=== PATIENT | male | born 1955 | race Caucasian/White ===

== ENCOUNTER 2018-03-10 12:49 | Inpatient (IN) | payer MEDICARE, OTHER ==
[2018-03-10] MEDS: SODIUM CHLORIDE 0.9% 1L BAG IV* (13:17)
[2018-03-10] MEDS ORDERED: LORAZEPAM 2 MG INJ (13:22)
[2018-03-10 13:27] LABS: ADD MAN DIFF? NO
[2018-03-10 13:28] LABS: BASOPHIL # 0.1 10^3/ul (0.0-0.1); BASOPHILS % 1.2 % (0.0-2.0); EOSINOPHILS # 0.1 10^3/ul (0.0-0.5); EOSINOPHILS % 1.5 % (0.0-7.0); HEMATOCRIT 38.3 % (42.0-52.0); HEMOGLOBIN 12.9 g/dl (14.0-18.0); LYMPHOCYTES # 1.7 10^3/ul (0.8-2.9); MEAN CORPUSCULAR HEMOGLOBIN 34.3 pg (29.0-33.0); MEAN CORPUSCULAR HGB CONC 33.7 g/dl (32.0-37.0); MEAN CORPUSCULAR VOLUME 101.9 fl (82.0-101.0); MEAN PLATELET VOLUME 9.7 fl (7.4-10.4); MONOCYTE # 0.5 10^3/ul (0.3-0.9); MONOCYTES % 8.6 % (0.0-11.0); NEUTROPHIL # 3.5 10^3/ul (1.6-7.5); NEUTROPHILS % 59.5 % (39.0-77.0); PLATELET COUNT 166 10^3/UL (140-415); RED BLOOD COUNT 3.76 10^6/ul (4.70-6.10); RED CELL DISTRIBUTION WIDTH 13.8 % (11.5-14.5)
[2018-03-10 13:28] LABS: WHITE BLOOD COUNT 5.9 10^3/ul (4.8-10.8)
[2018-03-10] MEDS: LORAZEPAM 2 MG INJ IM (13:30)
[2018-03-10] MEDS: HALOPERIDOL 5 MG INJ IM (13:30)
[2018-03-10 13:44] LABS: LACTIC ACID 1.6 mmol/L (0.5-2.0)
[2018-03-10 13:49] LABS: INR 1.06; PARTIAL THROMBOPLASTIN TIME 27.8 Sec (25.0-35.0); PROTIME 13.9 Sec (11.9-14.9); PT RATIO 1.1
[2018-03-10 14:14] LABS: ALANINE AMINOTRANSFERASE 27 IU/L (13-69); ALBUMIN 3.1 g/dl (3.3-4.9); ALBUMIN/GLOBULIN RATIO 1.06; ALKALINE PHOSPHATASE 83 IU/L (42-121); ANION GAP 13 (8-16); ASPARTATE AMINO TRANSFERASE 15 IU/L (15-46); BILIRUBIN,INDIRECT 0.4 mg/dl (0-1.1); BILIRUBIN,TOTAL 0.4 mg/dl (0.2-1.3); BLOOD UREA NITROGEN 27 mg/dl (7-20); CALCIUM 11.6 mg/dl (8.4-10.2); CARBON DIOXIDE 24 mmol/L (21-31); CHLORIDE 108 mmol/L (97-110); CREATININE 1.28 mg/dl (0.61-1.24); GLUCOSE 100 mg/dl (70-220); POTASSIUM 4.4 mmol/L (3.5-5.1); SODIUM 141 mmol/L (135-144)
[2018-03-10 14:16] LABS: ACETAMINOPHEN < 10.0 ug/ml (10.0-30.0); ETHANOL < 10.0 mg/dl; SALICYLATE < 1.0 mg/dl (5.0-30.0)
[2018-03-10 14:23] LABS: TROPONIN-I < 0.010 ng/ml (0.000-0.120)
[2018-03-10] MEDS: SOD CHLORIDE 0.9% 1,000 ML IV ×2 (15:27→19:05)
[2018-03-10 15:51] LABS: LACTIC ACID 0.9 mmol/L (0.5-2.0)
[2018-03-10] MEDS ORDERED: ACETAMINOPHEN 325 MG TAB PO ×2 (16:00→18:30)
[2018-03-10] MEDS ORDERED: ONDANSETRON 4 MG INJ IV ×2 (16:00→18:30)
[2018-03-10] MEDS: DILTIAZEM 25 MG INJ IV (16:54)
[2018-03-10 17:13] LABS: ADD UMIC YES; UR ASCORBIC ACID NEGATIVE (NEGATIVE); UR BILIRUBIN (Dip) NEGATIVE (NEGATIVE); UR BLOOD (Dip) 1+ mg/dL (NEGATIVE); UR CLARITY SLIGHTLY CLOUDY (CLEAR); UR COLOR YELLOW (YELLOW); UR GLUCOSE (Dip) NEGATIVE (NEGATIVE); UR KETONES (Dip) NEGATIVE (NEGATIVE); UR LEUKOCYTE ESTERASE (Dip) 3+ Leu/ul (NEGATIVE); UR NITRITE (Dip) NEGATIVE (NEGATIVE); UR RBC 3 /HPF (0-5); UR SPECIFIC GRAVITY (Dip) 1.006 (1.003-1.030); UR TOTAL PROTEIN (Dip) 1+ mg/dl (NEGATIVE); UR UROBILINOGEN (Dip) 1+ mg/dL (NEGATIVE); UR WBC 126 /HPF (0-5)
[2018-03-10] MEDS ORDERED: HYDROCODONE/APAP (5/325) TAB PO (18:30)
[2018-03-10] MEDS ORDERED: morphine 2 MG INJ IV (18:30)
[2018-03-10] MEDS ORDERED: DOCUSATE SODIUM 100 MG CAP PO (18:30)
[2018-03-10] MEDS ORDERED: NACL 0.9% 3 ML SYG IV (18:30)
[2018-03-10] MEDS: CEFTRIAXONE 1 GM/50 ML (PMX) 50 ML IVPB (19:05)
[2018-03-10] MEDS: clonAZEPAM 0.5 MG TAB PO (20:10)
[2018-03-10] MEDS: QUETIAPINE 100 MG TAB PO (20:11)
[2018-03-10] MEDS: DIVALPROEX (EC) 500 MG TAB PO (20:11)
[2018-03-10] MEDS: DILTIAZEM 30 MG TAB PO (20:12)
[2018-03-10] MEDS: METOPROLOL 50 MG TAB PO (20:13)
[2018-03-10] MEDS ORDERED: ZOLPIDEM 5 MG TAB PO (21:00)
[2018-03-10] MEDS ORDERED: NON-FORMULARY/PATIENT OWN MED (Divalproex Sodium* 500 MG) PO (21:00)
[2018-03-10] MEDS ORDERED: DILTIAZEM (SR) 60 MG CAP PO (21:00)
[2018-03-10 21:30] LABS: BARBITURATES Negative (NEGATIVE); BENZODIAZEPINES Negative (NEGATIVE); CANNABINOIDS Negative (NEGATIVE); COCAINE Negative (NEGATIVE); OPIATES Negative (NEGATIVE)
[2018-03-10 21:35] LABS: AMPHETAMINE/METHAMPHETAMINE Negative (NEGATIVE)
[2018-03-11] MEDS: DIGOXIN 500 MCG INJ IV ×2 (01:47→04:46)
[2018-03-11] MEDS: PANTOPRAZOLE (EC) 40 MG TAB PO (06:06)
[2018-03-11] MEDS: SOD CHLORIDE 0.9% 1,000 ML IV ×3 (06:07→22:42)
[2018-03-11] MEDS ORDERED: PANTOPRAZOLE (EC) 40 MG TAB PO (07:00)
[2018-03-11] MEDS: LORAZEPAM 2 MG INJ IV ×2 (07:56→21:25)
[2018-03-11] MEDS: CHOLECALCIFEROL 1,000 UNIT TAB PO (08:13)
[2018-03-11] MEDS: QUETIAPINE 100 MG TAB PO ×2 (08:13→20:51)
[2018-03-11] MEDS: clonAZEPAM 0.5 MG TAB PO ×2 (08:14→20:49)
[2018-03-11] MEDS: METOPROLOL 50 MG TAB PO (08:14)
[2018-03-11] MEDS: DILTIAZEM 30 MG TAB PO (08:14)
[2018-03-11 08:44] LABS: ADD MAN DIFF? NO
[2018-03-11 08:58] LABS: BASOPHIL # 0.1 10^3/ul (0.0-0.1); BASOPHILS % 0.7 % (0.0-2.0); EOSINOPHILS # 0.1 10^3/ul (0.0-0.5); HEMATOCRIT 40.9 % (42.0-52.0); HEMOGLOBIN 13.5 g/dl (14.0-18.0); LYMPHOCYTES # 1.3 10^3/ul (0.8-2.9); LYMPHOCYTES % 16.5 % (15.0-51.0); MEAN CORPUSCULAR HEMOGLOBIN 34.8 pg (29.0-33.0); MEAN CORPUSCULAR VOLUME 105.4 fl (82.0-101.0); MEAN PLATELET VOLUME 10.2 fl (7.4-10.4); MONOCYTE # 0.8 10^3/ul (0.3-0.9); MONOCYTES % 9.7 % (0.0-11.0); NEUTROPHIL # 5.8 10^3/ul (1.6-7.5); NEUTROPHILS % 71.9 % (39.0-77.0); PLATELET COUNT 148 10^3/UL (140-415); RED BLOOD COUNT 3.88 10^6/ul (4.70-6.10); RED CELL DISTRIBUTION WIDTH 14.1 % (11.5-14.5)
[2018-03-11] MEDS: DIVALPROEX (EC) 500 MG TAB PO (09:00)
[2018-03-11] MEDS ORDERED: RIVAROXABAN 20 MG TABLET PO (09:00)
[2018-03-11 09:14] LABS: IRON 50 ug/dl (35-150)
[2018-03-11 09:16] LABS: ALANINE AMINOTRANSFERASE 15 IU/L (13-69); ALBUMIN/GLOBULIN RATIO 1.03; ALKALINE PHOSPHATASE 75 IU/L (42-121); ANION GAP 10 (8-16); ASPARTATE AMINO TRANSFERASE 14 IU/L (15-46); BILIRUBIN,INDIRECT 0.1 mg/dl (0-1.1); BILIRUBIN,TOTAL 0.1 mg/dl (0.2-1.3); BLOOD UREA NITROGEN 20 mg/dl (7-20); CALCIUM 11.6 mg/dl (8.4-10.2); CARBON DIOXIDE 24 mmol/L (21-31); CHLORIDE 117 mmol/L (97-110); GLUCOSE 104 mg/dl (70-220); POTASSIUM 4.2 mmol/L (3.5-5.1); SODIUM 147 mmol/L (135-144); TOTAL PROTEIN 5.9 g/dl (6.1-8.1)
[2018-03-11 09:23] LABS: % IRON SATURATION 19 % SAT (22-52); TOTAL IRON BINDING CAPACITY 258 ug/dl (241-421)
[2018-03-11 09:39] LABS: HEMOGLOBIN A1C 5.4 % (0-5.9)
[2018-03-11 09:40] LABS: AMMONIA 40 umol/l (9-30)
[2018-03-11 10:21] LABS: FOLATE 6.5 ng/ml (2.8-20.0)
[2018-03-11] MEDS: METOPROLOL (XL) 50 MG TAB PO ×2 (10:39→20:51)
[2018-03-11 11:36] LABS: RETICULOCYTE COUNT # 0.073 X10^6 (0.020-0.110); RETICULOCYTE COUNT % 1.8 % (0.5-1.5)
[2018-03-11 11:36] LABS: RETICULOCYTE RBC 3.94
[2018-03-11] MEDS: VALPROIC ACID LIQUID CUP 250 MG/5 ML CUP PO ×2 (12:15→20:49)
[2018-03-11] MEDS: CEFTRIAXONE 1 GM/50 ML (PMX) 50 ML IVPB (12:15)
[2018-03-11] MEDS: DIGOXIN 0.125 MG TAB PO (12:16)
[2018-03-11] MEDS ORDERED: VANCOMYCIN IV PER PHARMACY XX (12:30)
[2018-03-11] MEDS: DILTIAZEM 25 MG INJ IV (13:05)
[2018-03-11] MEDS: VANCOMYCIN 1.5 GM in SOD CHLORIDE 0.9% 250 ML IVPB (14:46)
[2018-03-11] MEDS: RIVAROXABAN 20 MG TABLET PO (17:24)
[2018-03-12] MEDS: VANCOMYCIN 1.25 GM in SOD CHLORIDE 0.9% 250 ML IVPB ×2 (01:50→14:39)
[2018-03-12] MEDS: PANTOPRAZOLE (EC) 40 MG TAB PO (06:17)
[2018-03-12 07:46] LABS: ADD MAN DIFF? NO
[2018-03-12 07:53] LABS: BASOPHIL # 0.1 10^3/ul (0.0-0.1); BASOPHILS % 0.9 % (0.0-2.0); EOSINOPHILS # 0.1 10^3/ul (0.0-0.5); EOSINOPHILS % 1.6 % (0.0-7.0); HEMATOCRIT 42.1 % (42.0-52.0); HEMOGLOBIN 13.2 g/dl (14.0-18.0); LYMPHOCYTES # 1.4 10^3/ul (0.8-2.9); LYMPHOCYTES % 20.3 % (15.0-51.0); MEAN CORPUSCULAR HEMOGLOBIN 33.2 pg (29.0-33.0); MEAN CORPUSCULAR HGB CONC 31.4 g/dl (32.0-37.0); MEAN CORPUSCULAR VOLUME 105.8 fl (82.0-101.0); MEAN PLATELET VOLUME 10.2 fl (7.4-10.4); MONOCYTE # 0.7 10^3/ul (0.3-0.9); MONOCYTES % 10.3 % (0.0-11.0); NEUTROPHIL # 4.5 10^3/ul (1.6-7.5); NEUTROPHILS % 66.8 % (39.0-77.0); PLATELET COUNT 139 10^3/UL (140-415); RED BLOOD COUNT 3.98 10^6/ul (4.70-6.10); RED CELL DISTRIBUTION WIDTH 14.4 % (11.5-14.5)
[2018-03-12 07:53] LABS: WHITE BLOOD COUNT 6.8 10^3/ul (4.8-10.8)
[2018-03-12 08:18] LABS: ALANINE AMINOTRANSFERASE 20 IU/L (13-69); ALBUMIN 2.8 g/dl (3.3-4.9); ALBUMIN/GLOBULIN RATIO 0.96; ALKALINE PHOSPHATASE 75 IU/L (42-121); ANION GAP 7 (8-16); ASPARTATE AMINO TRANSFERASE 12 IU/L (15-46); BLOOD UREA NITROGEN 13 mg/dl (7-20); CALCIUM 11.2 mg/dl (8.4-10.2); CARBON DIOXIDE 26 mmol/L (21-31); CHLORIDE 121 mmol/L (97-110); CREATININE 0.97 mg/dl (0.61-1.24); GLUCOSE 88 mg/dl (70-220); MAGNESIUM 1.7 mg/dl (1.7-2.5); POTASSIUM 4.6 mmol/L (3.5-5.1); SODIUM 149 mmol/L (135-144); TOTAL PROTEIN 5.7 g/dl (6.1-8.1)
[2018-03-12 08:20] LABS: B-TYPE NATRIURETIC PEPTIDE 5240 PG/ML (0-125)
[2018-03-12] MEDS: VALPROIC ACID LIQUID CUP 250 MG/5 ML CUP PO ×2 (09:36→20:51)
[2018-03-12] MEDS: QUETIAPINE 100 MG TAB PO ×2 (09:36→20:52)
[2018-03-12] MEDS: CHOLECALCIFEROL 1,000 UNIT TAB PO (09:37)
[2018-03-12] MEDS: clonAZEPAM 0.5 MG TAB PO ×2 (09:37→20:52)
[2018-03-12] MEDS: METOPROLOL (XL) 50 MG TAB PO (09:40)
[2018-03-12] MEDS: SOD CHLORIDE 0.9% 1,000 ML IV (12:37)
[2018-03-12] MEDS: CEFTRIAXONE 1 GM/50 ML (PMX) 50 ML IVPB (12:37)
[2018-03-12] MEDS: DIGOXIN 0.125 MG TAB PO (12:39)
[2018-03-12] MEDS: FUROSEMIDE 40 MG INJ IV (18:07)
[2018-03-12] MEDS: DILTIAZEM 25 MG INJ IV (18:07)
[2018-03-12] MEDS: RIVAROXABAN 20 MG TABLET PO (18:07)
[2018-03-12] MEDS ORDERED: METOPROLOL 5 MG INJ IV (19:00)
[2018-03-12] MEDS: AMIODARONE 150MG/D5W BOLUS 100 ML IV (19:33)
[2018-03-12] MEDS: AMIODARONE 900 MG in DEXTROSE 5% 482 ML IV (19:52)
[2018-03-12] MEDS: METOPROLOL (XL) 100 MG TAB PO (20:53)
[2018-03-13 01:42] LABS: VANCOMYCIN,TROUGH 18.5 ug/ml (10.0-20.0)
[2018-03-13] MEDS: VANCOMYCIN 1 GM 250 ML IVPB ×2 (02:43→13:19)
[2018-03-13] MEDS: PANTOPRAZOLE (EC) 40 MG TAB PO (05:59)
[2018-03-13 06:14] LABS: ADD MAN DIFF? NO
[2018-03-13 06:34] LABS: BASOPHIL # 0.1 10^3/ul (0.0-0.1); BASOPHILS % 0.9 % (0.0-2.0); EOSINOPHILS # 0.1 10^3/ul (0.0-0.5); EOSINOPHILS % 1.4 % (0.0-7.0); HEMATOCRIT 41.1 % (42.0-52.0); HEMOGLOBIN 13.7 g/dl (14.0-18.0); LYMPHOCYTES # 1.7 10^3/ul (0.8-2.9); LYMPHOCYTES % 20.9 % (15.0-51.0); MEAN CORPUSCULAR HEMOGLOBIN 34.4 pg (29.0-33.0); MEAN CORPUSCULAR HGB CONC 33.3 g/dl (32.0-37.0); MEAN CORPUSCULAR VOLUME 103.3 fl (82.0-101.0); MEAN PLATELET VOLUME 10.9 fl (7.4-10.4); MONOCYTE # 0.9 10^3/ul (0.3-0.9); MONOCYTES % 11.1 % (0.0-11.0); NEUTROPHIL # 5.2 10^3/ul (1.6-7.5); NEUTROPHILS % 65.3 % (39.0-77.0); PLATELET COUNT 109 10^3/UL (140-415); RED BLOOD COUNT 3.98 10^6/ul (4.70-6.10); RED CELL DISTRIBUTION WIDTH 14.3 % (11.5-14.5)
[2018-03-13 06:46] LABS: PHOSPHORUS 2.7 mg/dl (2.5-4.9)
[2018-03-13 06:46] LABS: MAGNESIUM 1.7 mg/dl (1.7-2.5)
[2018-03-13 08:07] LABS: DIGOXIN 1.1 ng/ml (1.0-2.0)
[2018-03-13 08:17] LABS: ANION GAP 10 (8-16); BLOOD UREA NITROGEN 14 mg/dl (7-20); CALCIUM 11.6 mg/dl (8.4-10.2); CARBON DIOXIDE 21 mmol/L (21-31); CHLORIDE 121 mmol/L (97-110); GLUCOSE 77 mg/dl (70-220); POTASSIUM 4.7 mmol/L (3.5-5.1); SODIUM 147 mmol/L (135-144)
[2018-03-13] MEDS ORDERED: QUETIAPINE 100 MG TAB PO (09:00)
[2018-03-13] MEDS: QUETIAPINE 100 MG TAB PO ×2 (09:10→20:27)
[2018-03-13] MEDS: clonAZEPAM 0.5 MG TAB PO ×2 (09:10→20:20)
[2018-03-13] MEDS: METOPROLOL (XL) 100 MG TAB PO ×2 (09:10→20:22)
[2018-03-13] MEDS: CHOLECALCIFEROL 1,000 UNIT TAB PO (09:11)
[2018-03-13] MEDS: VALPROIC ACID LIQUID CUP 250 MG/5 ML CUP PO ×2 (09:11→20:20)
[2018-03-13] MEDS: CEFTRIAXONE 1 GM/50 ML (PMX) 50 ML IVPB (12:18)
[2018-03-13] MEDS: DIGOXIN 0.125 MG TAB PO (13:16)
[2018-03-13] MEDS: MAGNESIUM SULFATE 2 GM/50 ML 50 ML IVPB ×2 (15:01→16:59)
[2018-03-13] MEDS: RIVAROXABAN 20 MG TABLET PO (16:59)
[2018-03-13] MEDS: LEVOFLOXACIN 500MG/D5W (PMX) 100 ML IVPB (22:57)
[2018-03-14] MEDS: PANTOPRAZOLE (EC) 40 MG TAB PO (06:31)
[2018-03-14] MEDS: METOPROLOL (XL) 100 MG TAB PO ×2 (08:33→22:36)
[2018-03-14] MEDS: VALPROIC ACID LIQUID CUP 250 MG/5 ML CUP PO ×2 (08:34→22:36)
[2018-03-14] MEDS: clonAZEPAM 0.5 MG TAB PO ×2 (08:34→22:35)
[2018-03-14] MEDS: QUETIAPINE 100 MG TAB PO ×2 (08:34→22:35)
[2018-03-14] MEDS: CHOLECALCIFEROL 1,000 UNIT TAB PO (08:34)
[2018-03-14] MEDS: AMIODARONE 200 MG TAB PO ×2 (08:34→22:35)
[2018-03-14] MEDS: DIGOXIN 0.125 MG TAB PO (13:52)
[2018-03-14] MEDS ORDERED: morphine LIQ (10 MG/5 ML) CUP PO (16:30)
[2018-03-14 18:06] LABS: PTH CALCIUM 11.3 mg/dL (8.6-10.3)
[2018-03-14] MEDS: RIVAROXABAN 20 MG TABLET PO (18:26)
[2018-03-14] MEDS: MAGNESIUM SULFATE 2 GM/50 ML 50 ML IVPB (18:26)
[2018-03-14] MEDS: LEVOFLOXACIN 500MG/D5W (PMX) 100 ML IVPB (22:34)
[2018-03-15 05:33] LABS: ADD MAN DIFF? NO
[2018-03-15 05:36] LABS: WHITE BLOOD COUNT 6.3 10^3/ul (4.8-10.8)
[2018-03-15 05:36] LABS: BASOPHIL # 0.1 10^3/ul (0.0-0.1); BASOPHILS % 0.9 % (0.0-2.0); EOSINOPHILS # 0.1 10^3/ul (0.0-0.5); EOSINOPHILS % 1.7 % (0.0-7.0); HEMATOCRIT 42.5 % (42.0-52.0); HEMOGLOBIN 13.5 g/dl (14.0-18.0); LYMPHOCYTES # 1.4 10^3/ul (0.8-2.9); LYMPHOCYTES % 21.9 % (15.0-51.0); MEAN CORPUSCULAR HEMOGLOBIN 33.3 pg (29.0-33.0); MEAN CORPUSCULAR HGB CONC 31.8 g/dl (32.0-37.0); MEAN CORPUSCULAR VOLUME 104.9 fl (82.0-101.0); MEAN PLATELET VOLUME 10.3 fl (7.4-10.4); MONOCYTE # 0.8 10^3/ul (0.3-0.9); MONOCYTES % 12.3 % (0.0-11.0); NEUTROPHILS % 62.9 % (39.0-77.0); PLATELET COUNT 148 10^3/UL (140-415); RED BLOOD COUNT 4.05 10^6/ul (4.70-6.10); RED CELL DISTRIBUTION WIDTH 14.2 % (11.5-14.5)
[2018-03-15] MEDS: PANTOPRAZOLE (EC) 40 MG TAB PO (06:23)
[2018-03-15 06:51] LABS: ALANINE AMINOTRANSFERASE 21 IU/L (13-69); ALBUMIN 2.7 g/dl (3.3-4.9); ALBUMIN/GLOBULIN RATIO 0.87; ALKALINE PHOSPHATASE 74 IU/L (42-121); ANION GAP 12 (8-16); ASPARTATE AMINO TRANSFERASE 10 IU/L (15-46); BILIRUBIN,INDIRECT 0.4 mg/dl (0-1.1); BILIRUBIN,TOTAL 0.4 mg/dl (0.2-1.3); BLOOD UREA NITROGEN 18 mg/dl (7-20); CALCIUM 11.5 mg/dl (8.4-10.2); CARBON DIOXIDE 27 mmol/L (21-31); CHLORIDE 113 mmol/L (97-110); CREATININE 0.99 mg/dl (0.61-1.24); GLUCOSE 88 mg/dl (70-220); MAGNESIUM 2.4 mg/dl (1.7-2.5); POTASSIUM 4.6 mmol/L (3.5-5.1); SODIUM 147 mmol/L (135-144); TOTAL PROTEIN 5.8 g/dl (6.1-8.1)
[2018-03-15 08:26] LABS: PTH INTACT 124 pg/mL (14-64)
[2018-03-15] MEDS: VALPROIC ACID LIQUID CUP 250 MG/5 ML CUP PO ×2 (09:23→22:03)
[2018-03-15] MEDS: METOPROLOL (XL) 100 MG TAB PO ×2 (09:24→22:06)
[2018-03-15] MEDS: clonAZEPAM 0.5 MG TAB PO ×2 (09:24→22:04)
[2018-03-15] MEDS: QUETIAPINE 100 MG TAB PO ×2 (09:24→22:04)
[2018-03-15] MEDS: CHOLECALCIFEROL 1,000 UNIT TAB PO (09:24)
[2018-03-15] MEDS: AMIODARONE 200 MG TAB PO ×2 (09:24→22:05)
[2018-03-15] MEDS: DIGOXIN 0.125 MG TAB PO (12:42)
[2018-03-15] MEDS: RIVAROXABAN 20 MG TABLET PO (17:20)
[2018-03-15 18:16] LABS: PTH CALCIUM 11.5 mg/dL (8.6-10.3)
[2018-03-15] MEDS: LEVOFLOXACIN 500MG/D5W (PMX) 100 ML IVPB (22:02)
[2018-03-16] MEDS: PANTOPRAZOLE (EC) 40 MG TAB PO (05:05)
[2018-03-16] MEDS: VALPROIC ACID LIQUID CUP 250 MG/5 ML CUP PO (09:36)
[2018-03-16] MEDS: QUETIAPINE 100 MG TAB PO (09:37)
[2018-03-16] MEDS: clonAZEPAM 0.5 MG TAB PO (09:37)
[2018-03-16] MEDS: CHOLECALCIFEROL 1,000 UNIT TAB PO (09:37)
[2018-03-16] MEDS: METOPROLOL (XL) 100 MG TAB PO (09:37)
[2018-03-16] MEDS: AMIODARONE 200 MG TAB PO (09:38)
[2018-03-16 11:12] LABS: PTH INTACT 192 pg/mL (14-64)
== END 2018-03-16 11:23 | disposition home or self-care (01) | DRG 308 ==
LOC: E/R 12:49 → MS4 15:43
DX: I48.91 Unspecified atrial fibrillation (principal); I50.43 Acute on chronic combined systolic (congestive) and diastolic (congestive) heart failure; F23 Brief psychotic disorder; N39.0 Urinary tract infection, site not specified; N17.9 Acute kidney failure, unspecified; E87.0 Hyperosmolality and hypernatremia; E86.0 Dehydration; D64.9 Anemia, unspecified; E78.5 Hyperlipidemia, unspecified; I11.0 Hypertensive heart disease with heart failure; I42.9 Cardiomyopathy, unspecified; E83.52 Hypercalcemia; J44.9 Chronic obstructive pulmonary disease, unspecified
CPT/HCPCS: 36415; 71045; 80048; 80053; 80162; 80202; 80307; 81001; 82140; 82607; 82746; 82962; 83036; 83540; 83605; 83735; 83880; 83970; 84100; 84443; 84484; 85025; 85045; 85610; 85730; 87040; 87081; 87086; 93005; 93306; 97161; 99291-25